=== PATIENT | male | born 1970 | race Caucasian/White ===

== ENCOUNTER 2016-08-23 09:00 | Emergency (ER) | payer OTHER ==
[2016-08-23] MEDS ORDERED: Acetaminophen TAB* 325 MG PO ONE (09:39)
--- NOTE | 2016-08-23 09:45 | UC ---
HPI Febrile Illness - HPI Summary HPI Summary: Fever and chills since last night. he has a headache and myalgias as well. no cough or rashes. no abd or urinary symptoms. He states he gets this once a year and has had similar presentation but refused LP. He has no sick contacts at home. - History of Current Complaint Chief Complaint: UCGeneralIllness Time Seen by Provider: 08/23/16 09:29 Onset/Duration: Started Hours Ago Timing: Constant Initial Severity: Moderate Current Severity: Severe Aggravating Factors: Other: - lights make headache worse. Associated Signs and Symptoms: Diaphoresis, Headache - Allergy/Home Medications Allergies/Adverse Reactions: Allergies Allergy/AdvReac Type Severity Reaction Status Date / Time No Known Allergies Allergy Verified 08/23/16 09:06 Home Medications: Home Medications Amoxicillin CAP* [-Amoxicillin 250 MG CAP*] 08/23/16 [History] PMH/Surg Hx/FS Hx/Imm Hx Cardiovascular History: Denies: Hx Aneurysm - Surgical History Surgery Procedure, Year, and Place: fareed. gastric bipass. shoulder surgery. ACL - Immunization History Date of Influenza Vaccine: didn't get one yet this year Infectious Disease History: No Infectious Disease History: Denies: Traveled Outside the [place] in Last 30 Days - Family History Known Family History: Positive: Hypertension - Social History Occupation: Employed Full-time - Seldom Seen Adventures. Alcohol Use: None Substance Use Type: Reports: None Smoking Status (MU): Never Smoked Tobacco Review of Systems Skin: Negative Genitourinary: Negative Neurovascular: Negative Psychological: Negative All Other Systems Reviewed And Are Negative: Yes Physical Exam Triage Information Reviewed: Yes Appearance: Pain Distress - He has eyes closed and has obvious headache. alert and coherent. logical. no lethargy. Vital Signs: Initial Vital Signs Temp 98.5 F 08/23/16 09:08 Pulse 96 08/23/16 09:08 Resp 18 08/23/16 09:08 BP 99/63 08/23/16 09:08 Pulse Ox 98 08/23/16 09:08 Vital Signs Reviewed: Yes Eyes: Positive: Conjunctiva Clear. Negative: Conjunctiva Inflamed ENT Exam: Normal ENT: Positive: Normal ENT inspection, Hearing grossly normal, Pharynx normal, TMs normal. Negative: Pharyngeal erythema, Nasal congestion, Nasal drainage, TM bulging, TM dull, TM red, Tonsillar swelling, Tonsillar exudate, Trismus, Muffled/hoarse voice Neck exam: Normal, Other - full rom and he can touch chin to chest but this makes headache worse. Respiratory Exam: Normal Respiratory: Positive: Lungs clear, Normal breath sounds, No respiratory distress, No accessory muscle use. Negative: Respiratory distress, Decreased breath sounds, Accessory muscle use, Crackles, Rhonchi, Stridor, Wheezing Cardiovascular: Positive: No Murmur, Pulses Normal, Brisk Capillary Refill, Tachycardia - HR 90 Abdomen Description: Positive: Nontender, No Organomegaly, Soft Musculoskeletal Exam: Normal Musculoskeletal: Positive: Strength Intact, ROM Intact, No Edema Neurological Exam: Normal Neurological: Positive: Alert, Muscle Tone Normal. Negative: Fatigued, Lethargic, Unresponsive, Abnormal Muscle Tone Psychological Exam: Normal Skin Exam: Normal Skin: Negative: rashes Course/Dx - Course Course Of Treatment: Fever with headache. We will begin workup. if normal results here, he will nee further workup in the eD with labs for meningitis, sepsis, lymes disease. D/w Claire Velasco from [facility] who accepts patient. Pt refuses ambulance. - Febrile Illness Differential Diagnoses: Abd. Infection, Abscess, Bacteremia, Cellulitis, Encephalitis, Endocarditis, Fever of Unknown Origin, GI Disease, Meningitis, Neoplasm, Pyelonephritis, [place] Spotted Fever, Sepsis, Tuberculosis, Toxic Shock Syndrome - Diagnoses Clinic Provider Diagnoses: FUO. SIRS criteria positive. possible sepsis. Discharge - Discharge Plan Condition: Guarded Disposition: TRANS HIGHER LVL OF CARE FAC Referrals: Souleymane Gutierrez DO [Primary Care Provider] -
--- NOTE | 2016-08-23 10:10 | RAD ---
HISTORY: Fever chills, sepsis COMPARISONS: None VIEWS: 2: Frontal dual-energy and lateral views of the chest. FINDINGS: CARDIOMEDIASTINAL SILHOUETTE: The cardiomediastinal silhouette is normal. YAMILA: The yamila are normal. PLEURA: The costophrenic angles are sharp. No pleural abnormalities are noted. LUNG PARENCHYMA: The lungs are clear. ABDOMEN: The upper abdomen is clear. There is no subphrenic gas. BONES AND SOFT TISSUES: No bone or soft tissue abnormalities are noted. OTHER: None. IMPRESSION: NO ACTIVE CARDIOPULMONARY DISEASE.
[2016-08-23 10:29] VITALS: BP 113/64
== END 2016-08-23 10:29 | disposition short-term general hospital (02) ==
LOC: UCCORT 09:00
DX: R50.9 Fever, unspecified (principal); R65.10 Systemic inflammatory response syndrome (SIRS) of non-infectious origin without acute organ dysfunction; R51 Headache; M79.1 Myalgia; Z98.84 Bariatric surgery status
CPT/HCPCS: 71020; 81003; 87502; 99213; A9270-GY; G0463

== ENCOUNTER 2017-09-28 15:50 | Emergency (ER) | payer OTHER ==
[2017-09-28 17:21] VITALS: BP 109/77
--- NOTE | 2017-09-28 17:31 | UC ---
Skin Complaint HPI - HPI Summary HPI Summary: 47 y/o male presents to the urgent care c/o poison ap exposure w/ a rash in B/ L arm, chest and abdomen for the past 4 days when he was in [place]. Pt reports he was walking around a [place] and he saw the poison Ap, but he doesn't recall touch it. Then he developed the rash w/ itchiness. He has not taking anything to alleviate symptoms, but feels his throat is scratchy. Pt denies SOB , difficulty breathing, fever, chest pain, abdominal pain, N/V/D - History of Current Complaint Chief Complaint: UCSkin Time Seen by Provider: 09/28/17 17:11 Stated Complaint: POISON AP Hx Obtained From: Patient Onset/Duration: Sudden Onset, Lasting Days - 4 days, Still Present, Worse Since - yesterday Skin Exposure Onset/Duration: Days Ago - 4 days Timing: Constant Onset Severity: Mild Current Severity: Moderate Pain Intensity: 0 Pain Scale Used: 0-10 Numeric Location: Discrete - B/L arm, upper ches and RT side of abdomen Character: Pruritus, Redness Aggravating Factor(s): Touch Alleviating Factor(s): Nothing Associated Signs & Symptoms: Positive: Rash. Negative: Difficulty Breathing, Fever, Chills, Hoarseness, Throat Tightening Related History: Possible Reaction to: Environmental Exposure - Allergy/Home Medications Allergies/Adverse Reactions: Allergies Allergy/AdvReac Type Severity Reaction Status Date / Time No Known Allergies Allergy Verified 09/28/17 17:20 Review of Systems Constitutional: Negative Skin: Rash - B/L arms , chest and Rt side of abdomen Eyes: Negative ENT: Sore Throat - scratchy Respiratory: Negative Cardiovascular: Negative Gastrointestinal: Negative Genitourinary: Negative Motor: Negative Neurovascular: Negative Musculoskeletal: Negative Neurological: Negative Psychological: Negative Is Patient Immunocompromised?: No All Other Systems Reviewed And Are Negative: Yes PMH/Surg Hx/FS Hx/Imm Hx Previously Healthy: Yes - Pt denies PMHX - Surgical History Surgical History: Yes Surgery Procedure, Year, and Place: fareed. gastric bipass. shoulder surgery - Family History Known Family History: Positive: Hypertension, Diabetes - Social History Occupation: Employed Full-time Lives: With Family Alcohol Use: None Substance Use Type: None Smoking Status (MU): Never Smoked Tobacco - Immunization History Most Recent Influenza Vaccination: not this season Physical Exam - Summary Physical Exam Summary: Vital Signs Reviewed: Yes General: well developed, well nourished male sitting in the examining table w/o any apparent distress. Eyes: Positive: Conjunctiva Clear - PERRLA, EOMI ENT: Positive: Normal ENT inspection, Hearing grossly normal, Pharynx normal, TMs normal Neck: Positive: Supple, Nontender, No Lymphadenopathy Respiratory: Positive: Chest nontender, Lungs clear, Normal breath sounds Cardiovascular: Positive: RRR, No Murmur, Pulses Normal Abdomen Description: Positive: Nontender, No Organomegaly, Soft. Negative: CVA Tenderness (R), CVA Tenderness (L) Bowel Sounds: Positive: Present Musculoskeletal: Positive: Strength Intact, ROM Intact, No Edema Neurological Exam: Normal Psychological Exam: Normal Skin: Positive: rashes -B/L forearm and upper chest and RT side of lower abdomen w/ scattered erythematous vesicles, particularly in linear streaks w/ mild signs of excoriation, no drainage observed, non tender to palpation. Triage Information Reviewed: Yes Vital Signs: Initial Vital Signs Temp 98.1 F 09/28/17 17:16 Pulse 62 09/28/17 17:16 Resp 14 09/28/17 17:16 BP 109/77 09/28/17 17:16 Pulse Ox 100 09/28/17 17:16 Course/Dx - Course Course Of Treatment: 47 y/o male presents to the urgent care c/o poison ap exposure w/ a rash in B/L arm, chest and abdomen for the past 4 days when he was in [place]. Pt reports he was walking around [place] and he saw the poison Ap, but he doesn't recall touch it. Then he developed the rash w/ itchiness. He has not taking anything to alleviate symptoms, but feels his throat is scratchy. Pt denies SOB, difficulty breathing, fever, chest pain, abdominal pain, N/V/D. Hx obtained. Pt B/L forearm and upper chest and RT side of lower abdomen w/ scattered erythematous vesicles, particularly in linear streaks w/ mild signs of excoriation, no drainage observed, non tender to palpation on examination. PT Rx Prednisone PO taper dose and Clobetasol topical cream and advises to continue taking Benadryl PO for pruritus. If not improvement or worsening of symptoms to return to the clinic or f/u with PCP for further treatment.PT understood and agreed with D/C instructions - Differential Diagnoses - Skin Complaint Differential Diagnoses: Contact Dermatitis, Local Allergic Reaction, Poison Ap , Poison Decker - Diagnoses Provider Diagnoses: 1- Acute rash poison ap Discharge - Sign-Out/Discharge Documenting (check all that apply): Discharge/Admit/Transfer - D/C home - Discharge Plan Condition: Stable Disposition: HOME Prescriptions: Clobetasol 0.05% OINT* 1 applic TOPICAL BID #1 tube predniSONE TAB* [Deltasone 20 MG TAB*] 20 mg PO DAILY #11 tab Patient Education Materials: Poison Ap (ED) Referrals: Souleymane Gutierrez DO [Primary Care Provider] - 3 Days Additional Instructions: 1-Please apply Clobetasol topical cream as directed. 2-Take Prednisone PO taper dose to alleviate symptoms. 3-If symptoms do not improve or worsen please f/u with your PCP 3 days or return to the urgent care for further evaluation and treatment. - Billing Disposition and Condition Condition: STABLE Disposition: HOME
== END 2017-09-28 17:48 | disposition home or self-care (01) ==
LOC: UCCORT 15:50
DX: L23.7 Allergic contact dermatitis due to plants, except food (principal)
CPT/HCPCS: 99212; G0463